=== PATIENT | male | born 2000 | race Caucasian/White ===

== ENCOUNTER 2021-02-01 13:10 | Emergency (ER) | payer OTHER, SELFPAY ==
--- NOTE | ~2021-02-01 | XR_ITS ---
EXAMINATION: XR SHOULDER, RIGHT CLINICAL INFORMATION: Injury. COMPARISON: None TECHNIQUE: AP external rotation, Grashey, scapular Y, and axillary views of the right shoulder. FINDINGS: The bones and soft tissues are normal. No fracture. Glenohumeral and acromioclavicular alignment is anatomic with normal joint space. No abnormal soft tissue calcifications. XR/XR shoulder RT min 2V IMPRESSION: Unremarkable right shoulder exam.
[2021-02-01 13:57] VITALS: BP 116/58; PULSE 57; RESP 16; TEMP 36.6; O2SAT 97
--- NOTE | 2021-02-01 15:17 | ED.EXTPRO ---
HPI - Extremity Problem General Chief complaint: Extremity Injury, Upper Stated complaint: shoulder injury Time Seen by Provider: 02/01/21 14:42 Source: patient Mode of arrival: ambulatory Limitations: no limitations History of Present Illness HPI Narrative: A 20-year-old male presenting to the ED with complaints of right shoulder pain after he was playing basketball and someone ran into his right shoulder and since then he has been having pain with range of motion. Denies any other injuries complaints or concerns at this time. Related Data Previous Rx's Medication Instructions Recorded acetaminophen [Tylenol Extra 1,000 mg PO QID PRN #14 tab 02/01/21 Strength] cyclobenzaprine 10 mg PO Q8H #10 tab 02/01/21 naproxen 500 mg PO BID PRN #10 tab 02/01/21 Allergies Allergy/AdvReac Type Severity Reaction Status Date / Time No Known Allergies Allergy Unverified 05/16/20 16:54 seasonal Allergy Unknown Drowsy Uncoded 02/01/21 14:01 Review of Systems Review of Systems: Constitutional : No changes in activity, No lethargy, No recent prior head injury, No agitation, No increased fussiness ENT/Mouth : No Ear Pain, No Nasal discharge/drainage Eyes: No Eye Pain, No Swelling, No Redness, No Foreign Body, No Vision Changes Cardiovascular : No Chest Pain, No SOB Respiratory : No Cough Gastrointestinal : No Nausea, No Vomiting, No abdominal Pain Genitourinary : No Dysuria, No Urinary Frequency, No Urinary Incontinence, No Urgency, No Flank Pain Musculoskeletal : + joint pain, No neck stiffness, No back pain/injury Skin : No lacerations Neuro : No unsteady gait, No Paresthesias, No Loss of Consciousness, No altered mental status, No Headache Yes all other systems are reviewed and are negative [facility] Past Medical History Attestation statement: The following information was validated with the patient. Medical History No known health problems Social History Social History Advance Directives: No Advance Directives Information Provided: No Physical Exam Vital Signs: Vital Signs: Last Vital Signs Temp 97.8 F 02/01/21 13:57 Pulse 57 02/01/21 13:57 Resp 16 02/01/21 13:57 BP 116/58 L 02/01/21 13:57 Pulse Ox 97 02/01/21 13:57 Body Mass Index 20.0 vital signs have been reviewed as normal and appeared to be correct. Blood pressure normal. Heart rate normal. Respiration rate normal. Temperature normal. Oxygen saturation normal. Appearance: Alert. Oriented X3. No acute distress. Head: Normal external exam. Normocephalic. Atraumatic. Eyes: PERRLA. EOMI. Conjunctiva and sclera normal. Eyelids normal. ENT: Pharynx normal. Uvula midline. Moist mucous membranes. Neck: Normal inspection. Neck supple. FROM. No adenopathy. Thyroid Normal. No meningeal signs. No neck mass noted. CVS: Normal heart rate and rhythm. Heart sound normal. Pulses normal throughout. No murmurs/rales/gallops. Respiratory: No respiratory distress. Painless inspiration. Breath sounds normal. No wheezes/rales/rhonchi noted. Chest nontender. No accessory muscle usage noted or decreased air movement noted. Back: Full range of motion noted. No rashes/lesion/induration/fluctuance or signs of infection noted. Skin: Skin warm and dry. Normal skin color. Normal skin turgor. No rashes/lesions/lacerations noted. Extremities: To right AC joint patient has tenderness to palpation with limited range of motion to internal and external rotation although has no laxity. Otherwise all other Extremities exhibit normal range of motion and nontender. Neuro: Oriented X 3. No motor deficit. No sensory deficit. Reflexes normal. Normal steady gait. No focal neuro deficits noted. Vascular: + radial pulses/+ 2 distal pedal pulses/+2 dorsalis pedis b/l. Normal cap refill. No cyanosis noted to upper extremity nails and lower extremity toes nails. Course Course Course Narrative: X-ray of right shoulder obtained and negative for any acute processes. I explained to the patient that x-ray does not show ligament or tendon injury therefore that if he has persistent pain he is to follow-up with his PCP or orthopedics in approximately 2-6 weeks. Patient understands agrees with this plan. MDM - Extremity (Nontraumatic) Imaging Data X-ray right shoulder: Attestation: I personally reviewed and interpreted this imaging study as follows: Radiologist's impression: FINDINGS: The bones and soft tissues are normal. No fracture. Glenohumeral and acromioclavicular alignment is anatomic with normal joint space. No abnormal soft tissue calcifications. XR/XR shoulder RT min 2V IMPRESSION: Unremarkable right shoulder exam. Discharge Plan Discharge Clinical Impression: Right shoulder strain Patient Disposition: Home, Self-Care Instructions: Rotator Cuff Injury (ED), Shoulder Sprain (ED), Rotator Cuff Injury Exercises (DC) Prescriptions: New cyclobenzaprine 10 mg tablet 10 mg PO Q8H Qty: 10 RF: 0 naproxen 500 mg tablet 500 mg PO BID PRN (Reason: pain) Qty: 10 RF: 0 acetaminophen [Tylenol Extra Strength] 500 mg tablet 1,000 mg PO QID PRN (Reason: fever or pain) Qty: 14 RF: 0 Referrals: Terra Spence MD [Physician] - 2 days Print Language: Icelandic
== END 2021-02-01 15:27 | disposition home or self-care (01) ==
PROVIDERS: Emergency Provider Emergency Medicine Emergency Medical Services
DX: S46.911A Strain of unspecified muscle, fascia and tendon at shoulder and upper arm level, right arm, initial encounter (principal); M25.511 Pain in right shoulder; Y93.67 Activity, basketball; Y92.310 Basketball court as the place of occurrence of the external cause; Y99.9 Unspecified external cause status; Z79.899 Other long term (current) drug therapy
CPT/HCPCS: 73030; 99283

== ENCOUNTER → 2021-02-24 10:01 | Outpatient (BNVA) | payer OTHER, SELFPAY | PROVIDERS: Visit Provider Orthopaedic Surgery | DX: S49.91XA Unspecified injury of right shoulder and upper arm, initial encounter (principal) | CPT/HCPCS: 99202 ==

== ENCOUNTER 2025-07-19 09:22 | Outpatient (AMB) | payer BC, SELFPAY ==
--- NOTE | 2025-07-19 09:23 | A.OFFPC_ITS ---
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 Required: No Accompanied by: Self / Same As Patient Allergies No Known Allergies Allergy (Verified 07/19/25 09:50) seasonal Allergy (Unknown, Uncoded 07/19/25 09:50) Drowsy Medication List - Last Reconciled 07/19/25 by MIRTHA Molina No Known Home Meds Tobacco use date assessed: 07/19/25 Dental Screening Dental Screen Date: 07/19/25 Did you have a dental visit in the last 12 months?: Yes Did you have a dental problem in the last 6 months where you did not have access to dental care?: No Was dental information given to patient?: Patient has dentist HPI HPI Comments History of Present Illness Details [facility] Last visit: not sure Last PE:March 2024 Specialist: no OBGYN:n/a Past medical history: no Medications: Family HX:no Problem: 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 The patient's previous primary care provider was a sales and events coordinator, and the last physical exam was in March of the prior year. The patient reports no past medical history, takes no medications, and has no known family history of any medical conditions. The patient reports using Q-tips to clean the ears, which has resulted in impacted cerumen in the left ear. Health Maintenance - Ordered fasting blood work to check ch olesterol and establish baseline values. - Advised to avoid using Q-tips in the e ars. Social History - The patient recently graduated from [employer] with a degree in [employer]. - The patient primarily drinks water. Results [facility] Medical History No known health problems Social History Alcohol intake: never Patient Tobacco Use Status: Never used Tobacco Current occupational status: employed Cognitive needs: No Hearing needs: No Vision needs: No Questionnaire PHQ-9 Over the last 2 weeks, how often have you been bothered by any of the following problems? 1. Little interest or pleasure in doing things: not at all 2. Feeling down, depressed, or hopeless: not at all 3. Trouble falling or staying asleep, or sleeping too much: not at all 4. Feeling tired or having little energy: not at all 5. Poor appetite or overeating: not at all 6. Feeling bad about yourself - or that you are a failure or have let yourself or your family down: not at all 7. Trouble concentrating on things, such as reading the newspaper or watching television: not at all 8. Moving or speaking so slowly that other people could have noticed. Or the opposite - being so fidgety or restless that you have been moving around a lot more than usual: not at all 9. Thoughts that you would be better off or of hurting yourself in some w ay: not at all Total score: 0 Depression Screening Interpretation: Negative Depression Screening Done: Yes 88161 - PHQ-9 Billing: Yes Source: Developed by Drs. Ej Wei, Heather Glover, Bolivar Perez and colleagues, with an educational lauren from [employer]. Thrive Questionnaire Date Thrive assessed: 07/19/25 I am a: Patient What is your living situation today?: I have a steady place to live Within the past 12 months, did the food you bought not last and you didn't have the money to get more?: Never true Within the past 12 months, did you worry whether your food would run out before you got money to buy more?: Never true Do you have trouble paying for medicines?: No Do you have trouble getting transportation to medical appointments?: No Do you have trouble paying your heating and electricity bill?: No Do you have trouble taking care of your child, family member or friend?: No Do you have trouble with day-to-day activities such as bathing, preparing meals, shopping, managing finances, etc.?: No Are you currently unemployed and looking for a job?: No Are you interested in more education?: No Please select the resources that you would like help with: None Currently or been in a relationship where the following occur: No concerns reported THRIVE Score: 0 AUDIT C Alcohol Use Questionnaire (AUDIT-C) 2. How many drinks containing alcohol do you have on a typical day when you are drinking?: 3 or 4 Total Score: 1 TONO-7 AMB Questionnaire TONO-7 Date TONO - 7 assessed: 07/19/25 Feeling nervous, anxious, or on edge: 0 = Not at all Not being able to stop or control worryin = Not at all Worrying too much about different things: 0 = Not at all Trouble relaxin = Not at all Being so restless that it is hard to sit still: 0 = Not at all Becoming easily annoyed or irritable: 0 = Not at all Feeling afraid as if something awful might happen: 0 = Not at all Total TONO-7 score (0-4 normal; 5-9 mild; 10-14 moderate; 15-21 severe): 0 Source: Developed by Drs. Ej Wei, Heather Glover, Bolivar Perez and colleagues, with an educational lauren from [employer]. TONO-7 Assessment Billing TONO-7 Assessment Tool: TONO-7 Assessment 29226 Review of Systems Narrative Review of Systems - Constitutional: Denies any current health concerns. - Otolaryngologic: Reports using Q-tips in the ears. Const Denies headache(s) Eyes Denies loss of vision ENT Denies vertigo, Denies dizziness, Denies headache(s) and Denies sore throat Card Denies chest pain, Denies leg edema and Denies lightheadedness Resp Denies cough, Denies hemoptysis and Denies wheezing GI Denies abdominal pain, Denies melena, Denies constipation, Denies diarrhea and Denies vomiting Denies dysuria, Denies urinary frequency and Denies urinary urgency Musc Denies arthralgias, Denies joint swelling, Denies numbness and Denies tingling Neuro Denies Abnormal speech present, Denies behavioral changes, Denies vertigo, Denies dizziness, Denies headache(s), Denies loss of vision, Denies memory loss, Denies numbness and Denies tingling Psych Denies anxiety, Denies behavioral changes, Denies depression, Denies memory loss and Denies panic attacks Herminio/Lymph Denies easy bleeding and Denies easy bruising Aller/Immun Denies wheezing Physical exam (Primary Care) Vital Signs: Last Vital Signs Pulse 62 07/19/25 09:24 Resp 18 07/19/25 09:24 BP 124/72 07/19/25 09:24 Pulse Ox 97 07/19/25 09:24 Oxygen Delivery Method Room Air 07/19/25 09:24 BMI result Body Mass Index 22.8 Tobacco/Smoking Status: Tobacco use Status Tobacco use date assessed 07/19/25 07/19/25 09:25 Patient Tobacco Use Status Never used Tobacco 07/19/25 09:23 PHQ-9: PHQ-9 Score PHQ-9: Total score 0 07/19/25 09:54 Depression Screening Interpretation: Negative Thrive Assessment: Date of Thrive Assessment Date Thrive assessed 07/19/25 07/19/25 09:23 Currently or been in a relationship where the following occur: No concerns reported Narrative Physical Exam - Constitutional: The patient is a healthy-appearing young individual. - Eyes: Extraocular movements intact. - Ears: Right ear canal is clear. Left ear canal has hard, impacted cerumen, and the tympanic membrane is partially visualized. - Lungs: Clear to auscultation bilaterally. - Abdomen: Soft, non-tender to palpation throughout. No guarding or rebound. Const General: healthy appearing, no acute distress, alert and awake Nutritional Appearance: well nourished Orientation/consciousness: oriented to person, oriented to place and oriented to time HENMT Head: No hematoma Ears: Abnormal EAC present cerumen impaction on the left General nose exam: Normal nasal mucous membranes and turbinates present Eyes Conjunctivae: conjunctivae normal Sclerae: sclerae normal Pupils: Equal, round and reactive pupils present Neck Neck: Yes no lymphadenopathy and Yes no JVD Thyroid: Thyroid normal Carotids: no bruits Resp Effort & Inspection: normal respiratory effort and not tachypneic Auscultation: no crackles, no rales, no rhonchi and no wheezes Cardio Rate: regular rate Rhythm: regular rhythm Heart sounds: no murmurs and normal S1 and S2 GI Palpation (GI): Soft to palpation, nontender, no hepatomegaly and no splenomegaly Auscultation: normal bowel sounds Skin General skin exam: no rashes or lesions noted and dry skin Neuro General: oriented to person, oriented to place and oriented to time Cranial nerves: Yes Equal, round and reactive pupils present Speech: No Abnormal speech present Gait exam (Neuro): Normal gait present Motor exam (neuro): no tremor noted Extrem Right upper extremity: full ROM Left upper extremity: full ROM Right lower extremity: full ROM; no edema Left lower extremity: full ROM; no edema Psych Mental Status: mental status grossly normal Speech and movement: Normal speech and movement present Affect: normal affect Attitude: cooperative Thought process: Normal thought process present Coding Level of Care Code New Pt Level 4 (96515) Diagnoses Encounter to establish care with new provider Z76.89 Left ear impacted cerumen H61.22 Additional Codes PHQ-9 - 79037 - PHQ-9 Billing: Yes ([id number]) TONO-7 Assessment Billing - TONO-7 Assessment Tool: TONO-7 Assessment 81528 ([id number]) Time Spent (min) 34 Assessment & Plan Assessment & Plan (1) Encounter to establish care with new provider: Code(s): Z76.89 - Persons encountering health services in other specified circumstances Category: Medical (2) Left ear impacted cerumen: Code(s): H61.22 - Impacted cerumen, left ear Category: Medical Plan Plan Patient was informed and verbally consented to the use of an ambient scribe for clinic note documentation during this visit. 1. Cerumen Impaction, Left Ear The impacted cerumen in the left ear is attributed to Q-tip use, which has pushed the wax further into the canal, causing it to harden. An attempt to manually remove the cerumen with lighted curette was only partially successful. Recommended [id number] Debrox drops, two drops in the left ear twice daily for at least four days to soften the wax. Following the use of drops, the patient was advised to irrigate the ear with warm water to help clear the softened wax. The ear will be rechecked at the follow-up visit. 2. Preventative Care The patient is a healthy young individual establishing care. Fasting blood work, including a lipid panel, has been ordered to establish baseline values. A follow-up visit is scheduled in seven weeks to review lab results and complete the physical examination. Discussion Notes I discussed with the patient that the use of Q-tips likely caused the cerumen impaction in the left ear by pushing wax deeper, where it hardened. I recommended purchasing Debrox drops over the counter and using them twice daily for four days to soften the wax, explaining that this may cause a bubbling sensation. I advised that after softening, the patient can try irrigating the ear with warm water. I ordered fasting lab work to check cholesterol, explaining the need to avoid food or sugary drinks for 8-12 hours prior, though water and black coffee are permissible. We scheduled a follow-up appointment in seven weeks to review the lab results and re-evaluate the ear. Patient Instructions - Avoid using Q-tips in your ears, as they can push wax deeper and cause blockage. - Purchase Debrox ear drops over the counter. Use two drops in your left ear in the morning and two drops in the evening for at least four days to soften the earwax. - After using the drops, you can gently wash out your ear with warm water in the shower. - You will need to have blood work done. Please do not eat or drink anything except water or black coffee for 8 to 12 hours before your blood test. - Please schedule a follow-up appointment in about seven weeks to go over your lab results and have your ear checked again. Orders: Orders Comprehensive [place]. Panel Fast Today Z00.00 - Encounter for general adult medical examination without abnormal findings UA CC w/rflx Micro + Cult Today Z00.00 - Encounter for general adult medical examination without abnormal findings Complete Blood Count Auto Diff Today Z00.00 - Encounter for general adult medical examination without abnormal findings Lipid Panel Today Z00.00 - Encounter for general adult medical examination without abnormal findings TSH reflex Free T4 Today Z00.00 - Encounter for general adult medical examination without abnormal findings Vitamin D 25-OH Total Today Z00.00 - Encounter for general adult medical examination without abnormal findings
[2025-07-19 09:24] VITALS: BP 124/72; PULSE 62; RESP 18; O2SAT 97; BMI 22.8
== END 2025-07-19 10:04 | disposition home or self-care (01) ==
LOC: HO.HMCH 09:22
DX: Z76.89 Persons encountering health services in other specified circumstances (principal); H61.22 Impacted cerumen, left ear

== ENCOUNTER → 2025-07-19 09:22 | Outpatient (BNVA) | payer BC, SELFPAY | DX: Z76.89 Persons encountering health services in other specified circumstances (principal); H61.22 Impacted cerumen, left ear | CPT/HCPCS: 96127 ==